=== PATIENT | female | born 1990 | race Caucasian/White ===

== ENCOUNTER 2017-05-26 01:54 | Emergency (ER) | payer OTHER ==
[2017-05-26 02:07] VITALS: TEMP 98.1
[2017-05-26] MEDS ORDERED: ONDANSETRON 4 MG/2 ML VIAL ONE (02:22)
[2017-05-26] MEDS ORDERED: ONDANSETRON 4 MG/2 ML VIAL IVP ONE ×2 (02:23→04:25)
[2017-05-26] MEDS ORDERED: NS 1,000 ML IV ONE ×2 (02:23→02:53)
[2017-05-26] MEDS ORDERED: KETOROLAC 15 MG/1 ML SDV ONE (02:26)
[2017-05-26] MEDS ORDERED: KETOROLAC 15 MG/1 ML SDV IVP ONE (02:29)
--- NOTE | 2017-05-26 02:55 | EDPHY ---
H & P Stated Complaint: vomiting and diarrhea Time Seen by Provider: 05/26/17 02:25 HPI/ROS: HPI The patient presents with nausea, vomiting, diarrhea which all began at about 10 :00 p.m. last night. Her symptoms started suddenly after finishing her dinner. She has had vomiting about every 15 min since then. This is associated with intermittent lower abdominal cramping which is moderate in severity. She has had 2 episodes of watery diarrhea since midnight. As she has been feeling well otherwise. She denies any fever. She denies any sick contacts. She does not have any rhinorrhea, sore throat, coughing. 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 REVIEW OF SYSTEMS Constitutional: No fever, no chills. Eyes: No discharge. ENT: No sore throat. Cardiovascular: No chest pain, no palpitations. Respiratory: No cough, no shortness of breath. Gastrointestinal: See HPI Genitourinary: No hematuria. Musculoskeletal: No back pain. Skin: No rashes. Neurological: No headache. PMHx: Healthy Soc Hx: Housed, works in [place] PHYSICAL General Appearance: Alert, no distress Eyes: Pupils equal and round no pallor or injection ENT, Mouth: Mucous membranes dry Respiratory: There are no retractions, lungs are clear to auscultation Cardiovascular: Regular rate and rhythm Gastrointestinal: Abdomen is soft and non-tender, no masses, bowel sounds normal Neurological: A&O, moves all extremities Skin: Warm and dry, no rashes Musculoskeletal: Neck is supple non tender Extremities: symmetrical, full range of motion Psychiatric: Patient is oriented X 3, there is no agitation Source: Patient Exam Limitations: No limitations - Personal History LMP (Females 10-55): IUD In Place Current Tetanus/Diphtheria Vaccine: Yes Current Tetanus Diphtheria and Acellular Pertussis (TDAP): Yes - Medical/Surgical History Hx Asthma: No Hx Chronic Respiratory Disease: No Hx Diabetes: No Hx Cardiac Disease: No Hx Renal Disease: No Hx Cirrhosis: No Hx Alcoholism: No Hx HIV/AIDS: No Hx Splenectomy or Spleen Trauma: No Other PMH: denies - Social History Smoking Status: Never smoked Constitutional: Initial Vital Signs Temperature (C) 36.7 C 05/26/17 02:04 Heart Rate 94 05/26/17 02:04 Respiratory Rate 16 05/26/17 02:04 Blood Pressure 114/73 05/26/17 02:04 O2 Sat (%) 100 05/26/17 02:04 O2 Delivery Mode Room Air Allergies/Adverse Reactions: Sulfa (Sulfonamide Antibiotics) Allergy (Verified 05/26/17 02:07) Home Medications: Medication Instructions Recorded Iron 05/26/17 Ondansetron Odt [Zofran Odt 4 mg 4 mg PO Q4 PRN #10 tab 05/26/17 (*)] Vit D3-Vit K/Berberine/Hops 05/26/17 Medical Decision Making ED Course/Re-evaluation: 27-year-old female presents with about 5 hr of nausea, vomiting, intermittent abdominal pain and diarrhea. On exam, she is mildly tachycardic, mucous membranes are dry, abdominal exam is benign. Differential diagnosis includes viral gastroenteritis, toxin mediated enterocolitis, less likely appendicitis or urinary tract infection. In the emergency department, the patient was reassessed on several occasions. Her vomiting improved. She was able to tolerate fluids by mouth. Labs were checked and were unremarkable. She felt well enough to go home and was discharged. - Data Points Laboratory Results: Laboratory Results 05/26/17 02:20 05/26/17 02:20 Medications Given: Discontinued Medications Sodium Chloride (Ns) 1,000 mls @ 0 mls/hr IV ONCE ONE PRN Reason: Wide Open Stop: 05/26/17 02:24 Last Admin: 05/26/17 02:28 Dose: 1,000 mls Sodium Chloride (Ns) 1,000 mls @ 0 mls/hr IV EDNOW ONE; Wide Open PRN Reason: Protocol Stop: 05/26/17 02:54 Last Admin: 05/26/17 03:01 Dose: 1,000 mls Ketorolac Tromethamine (Toradol) 15 mg IVP EDNOW ONE Stop: 05/26/17 02:30 Last Admin: 05/26/17 02:29 Dose: 15 mg Ondansetron HCl (Zofran) 4 mg IVP EDNOW ONE Stop: 05/26/17 02:24 Last Admin: 05/26/17 02:28 Dose: 4 mg Ondansetron HCl (Zofran Odt 4 Mg Prepack#2) 1 btl TAKEHOME EDNOW ONE Stop: 05/26/17 03:35 Last Admin: 05/26/17 07:07 Dose: 1 btl Ondansetron HCl (Zofran) 4 mg IVP EDNOW ONE Stop: 05/26/17 04:26 Last Admin: 05/26/17 04:51 Dose: 4 mg Promethazine HCl (Phenergan) 12.5 mg IVP EDNOW ONE Stop: 05/26/17 05:47 Last Admin: 05/26/17 05:48 Dose: 12.5 mg Departure - Departure Disposition: Home, Routine, Self-Care Clinical Impression: Nausea vomiting and diarrhea Condition: Good Instructions: Ondansetron (By mouth), Dehydration (ED), Gastroenteritis (ED) Referrals: Mervat Renee MD [Primary Care Provider] - As per Instructions Prescriptions: Ondansetron Odt [Zofran Odt 4 mg (*)] 4 mg PO Q4 PRN #10 tab PRN Reason: Nausea/Vomiting, Can'T Take Po
[2017-05-26 03:13] LABS: PLATELET COUNT 182 10^3/uL (150-400)
[2017-05-26] MEDS ORDERED: ONDANSETRON 4MG PREPACK#2 BTL TAKEHOME ONE (03:34)
[2017-05-26] MEDS ORDERED: PROMETHAZINE HCL 25 MG/ML INJ ONE (05:45)
[2017-05-26] MEDS ORDERED: PROMETHAZINE HCL 25 MG/ML INJ IVP ONE (05:46)
[2017-05-26 06:59] VITALS: O2SAT 96
[2017-05-26 07:10] VITALS: BP 102/57; PULSE 96; RESP 16
== END 2017-05-26 07:08 | disposition home or self-care (01) ==
DX: R11.2 Nausea with vomiting, unspecified (principal); R19.7 Diarrhea, unspecified; E86.9 Volume depletion, unspecified
CPT/HCPCS: 96374; J1885; J2405; J2550